=== PATIENT | female | born 1970 | race Caucasian/White ===

== ENCOUNTER 2023-08-31 09:47 | Emergency (ER) | payer MEDICAID ==
[~2023-08-31] VITALS: Ht 170.2 cm; Wt 59.0 kg
[2023-08-31 10:00] VITALS: TEMP 98
[2023-08-31] MEDS ORDERED: KETOROLAC TROMETHAMINE 15 MG/ML VIAL ONE (10:29)
[2023-08-31] MEDS ORDERED: diphenhydrAMINE HCL 50 MG/ML VIAL ONE (10:29)
[2023-08-31] MEDS ORDERED: METOCLOPRAMIDE HCL 10 MG/2 ML VIAL IV ONE (10:30)
[2023-08-31] MEDS ORDERED: KETOROLAC TROMETHAMINE 15 MG/ML VIAL IV ONE (10:30)
[2023-08-31] MEDS ORDERED: diphenhydrAMINE HCL 50 MG/ML VIAL IV ONE (10:30)
[2023-08-31] MEDS ORDERED: IV NS 0.9% 1,000 ML BAG IV ONE (10:30)
[2023-08-31] MEDS ORDERED: METOCLOPRAMIDE HCL 10 MG/2 ML VIAL ONE (10:30)
[2023-08-31 13:30] VITALS: BP 145/85; O2SAT 100
== END 2023-08-31 11:50 | disposition home or self-care (01) ==
LOC: ER 09:47
DX: R51.9 Headache, unspecified (principal); F07.81 Postconcussional syndrome; Z88.5 Allergy status to narcotic agent; Z60.2 Problems related to living alone
CPT/HCPCS: 99285; 96374; 96375; 96361; J1200; J2765; J7030; J1885